=== PATIENT | male | born 1950 | race Caucasian/White ===

== ENCOUNTER → 2020-09-08 | Outpatient (CLI) | payer MEDICARE, BC ==
[~2020-09-08] MED LIST: AMIO200T42 PO; ASPI81TA45 PO; ATOR40TA78 PO; DRON400T PO; METO-93 PO; OMEP-110 PO; RIVA20TA PO
== END | disposition home or self-care (01) ==
LOC: CFH 09:28
PROVIDERS: ATTEND Nurse Practitioner Family
DX: R91.8 Other nonspecific abnormal finding of lung field (principal); J47.9 Bronchiectasis, uncomplicated
CPT/HCPCS: 71250